=== PATIENT | female | born 1980 | race Caucasian/White ===

== ENCOUNTER 2016-12-19 12:48 | Inpatient (IN) | payer OTHER ==
[~2016-12-19] VITALS: Ht 157.5 cm; Wt 97.7 kg
[~2016-12-19 12:48] MED LIST: ABILIFY20 M1 PO; ABILIFY5 M1 PO; AMB5 PO; AMBIEN10 MG; AMBIEN10 MG PO; ATIVAN1 MG PO; BACO TOP; CIPROFLOXACIN500 MG PO; CLONAZEPAM1 MG PO; COL100 PO; COLACE100 MG PO; CYMBALTA20 M1 PO; ESCITALOPRAM10 M1 PO; FLA500 PO; GLU500 PO; KEFLEX500 MG PO; KLOR-CON M2020 MEQ PO; LAC PO; LEXAPRO10 MG PO; LEXAPRO20 MG PO; LISINOPRIL10 MG PO; LORAZEPAM1 MG PO; MORPHINE SULFAT15 MG PO; MOTRIN800 MG PO; MSC15 PO; MSC30 PO; NEU300 PO; NITROFURANTOIN100 MG PO; NOR10T PO; PAX20 PO; PERCOCET1 TA1 PO; PERCOCET1 TA2 PO; PERCOCET1 TA3 PO; PERCOCET1 TA5 PO; PRE625 PO; PREMARIN0.625 MG; PRILOSEC20 MG PO; REM15 PO; SERTRALINE HYDR50 M1 PO; VITC PO; ZES10 PO; ZINC-220220 MG PO; ZOLOFT25 MG PO; ZOLOFT50 MG PO
[2016-12-19 15:24] LABS: BASOPHIL % 0.5 % (0-2); PLATELET COUNT 241 x10^3mcL (130-400); RED CELL DISTRIBUTION WIDTH 12.8 % (11.5-14.5)
[2016-12-19 15:33] LABS: CALCIUM 9.6 mg/dL (8.5-10.1); CARBON DIOXIDE 28.4 mmol/L (21-32); CHLORIDE SERUM 103 mmol/L (98-107); CREATININE SERUM 0.8 mg/dL (0.6-1.0); GFR1 > 60 mL/min; GLUCOSE SERUM 112 mg/dL (74-106); POTASSIUM SERUM 3.1 mmol/L (3.5-5.1); SODIUM SERUM 144 mmol/L (136-145)
[2016-12-19 15:38] LABS: ALBUMIN 4.1 g/dL (3.4-5.0); ALKALINE PHOSPHATASE 126 U/L (46-116); ALT/SGPT 45 U/L (14-59); AMYLASE 56 U/L (25-115); AST/SGOT 24 U/L (15-37); BILIRUBIN TOTAL 0.6 mg/dL (0.20-1.00); LIPASE 121 IU/L (73-393); TOTAL PROTEIN, SERUM 7.8 g/dL (6.4-8.2)
[2016-12-19 15:38] LABS: AMPHETAMINE QUAL UR NONE DETECTED (NEG <=1000)
[2016-12-19] MEDS ORDERED: ABILIFY5 M1 (16:16)
[2016-12-19] MEDS ORDERED: ABILIFY5 M1 PO (16:16)
[2016-12-19] MEDS ORDERED: TYLENOL WITH CO1 TA2 PO (16:17)
[2016-12-19] MEDS ORDERED: GABAPENTIN800 M1 PO (16:17)
[2016-12-19] MEDS ORDERED: ZOLOFT50 MG PO (16:17)
[2016-12-19] MEDS ORDERED: NORCO1 TA2 PO (16:18)
[2016-12-19 18:08] VITALS: BP 125/69
[2016-12-19 18:10] LABS: MAGNESIUM 1.8 mg/dL (1.8-2.4); PHOSPHOROUS 1.8 mg/dL (2.5-4.9)
[2016-12-19 18:20] LABS: T3 TOTAL 1.3 ng/mL
[2016-12-19 18:22] LABS: FREE THYROXINE INDEX 3.8 ug/dL (1.4-4.5); T4(THYROXINE) 10.4 ug/dL (4.7-13.3)
[2016-12-19 19:00] LABS: FREE T4 1.37 ng/dL (0.76-1.46)
[2016-12-19 21:49] VITALS: BP 106/53
[2016-12-20 06:07] VITALS: BP 115/67
[2016-12-20 06:24] LABS: CALCIUM 8.3 mg/dL (8.5-10.1); CARBON DIOXIDE 27.9 mmol/L (21-32); CHLORIDE SERUM 107 mmol/L (98-107); CREATININE SERUM 0.6 mg/dL (0.6-1.0); GFR1 > 60 mL/min; GLUCOSE SERUM 93 mg/dL (74-106); POTASSIUM SERUM 3.7 mmol/L (3.5-5.1); SODIUM SERUM 144 mmol/L (136-145)
[2016-12-20 06:37] LABS: BASOPHIL % 0.8 % (0-2); PLATELET COUNT 203 x10^3mcL (130-400)
[2016-12-20 08:45] VITALS: BP 115/67
[2016-12-20 10:22] VITALS: BP 121/80
[2016-12-20 14:35] VITALS: BP 101/46
[2016-12-20 17:08] VITALS: BP 113/58
[2016-12-20 21:27] VITALS: BP 113/69
[2016-12-21 05:56] VITALS: BP 136/86
[2016-12-21 06:53] LABS: CALCIUM 8.6 mg/dL (8.5-10.1); CARBON DIOXIDE 28.2 mmol/L (21-32); CHLORIDE SERUM 110 mmol/L (98-107); CREATININE SERUM 0.5 mg/dL (0.6-1.0); GFR1 > 60 mL/min; GLUCOSE SERUM 98 mg/dL (74-106); MAGNESIUM 1.9 mg/dL (1.8-2.4); PHOSPHOROUS 3.5 mg/dL (2.5-4.9); SODIUM SERUM 146 mmol/L (136-145)
[2016-12-21 06:58] LABS: BASOPHIL % 0.9 % (0-2); PLATELET COUNT 179 x10^3mcL (130-400); RED CELL DISTRIBUTION WIDTH 13.1 % (11.5-14.5)
[2016-12-21 10:02] VITALS: BP 115/68
[2016-12-21 13:32] VITALS: BP 146/95
[2016-12-21 15:28] VITALS: BP 146/95
== END 2016-12-21 16:14 | disposition home or self-care (01) | DRG 249 ==
LOC: ED 12:48 → DU 16:30
PROVIDERS: Emergency Medicine; ADMIT Family Medicine
DX: K52.9 Noninfective gastroenteritis and colitis, unspecified (principal); D68.69 Other thrombophilia; E11.40 Type 2 diabetes mellitus with diabetic neuropathy, unspecified; Z68.41 Body mass index [BMI] 40.0-44.9, adult; E66.01 Morbid (severe) obesity due to excess calories; F41.9 Anxiety disorder, unspecified; Z79.84 Long term (current) use of oral hypoglycemic drugs; F17.210 Nicotine dependence, cigarettes, uncomplicated; F12.10 Cannabis abuse, uncomplicated; G44.219 Episodic tension-type headache, not intractable; Z90.49 Acquired absence of other specified parts of digestive tract; Z87.890 Personal history of sex reassignment; Z82.49 Family history of ischemic heart disease and other diseases of the circulatory system; Z80.3 Family history of malignant neoplasm of breast; Z83.3 Family history of diabetes mellitus
CPT/HCPCS: 83880; 84439; J1170; J1885; J2060; J2405; J3480; J7030; J7613; Q0092; Q9967

== ENCOUNTER 2017-01-22 21:20 | Inpatient (IN) | payer OTHER ==
[~2017-01-22] VITALS: Ht 157.5 cm; Wt 94.3 kg
[~2017-01-22 21:20] MED LIST changes: +ABILIFY5 M1; +GABAPENTIN800 M1 PO; +NORCO1 TA2 PO; +TYLENOL WITH CO1 TA2 PO
--- NOTE | 2017-01-22 21:37 | NUR ---
PT BROUGHT IN FROM ER LOBBY AND TRIAGED AT BEDSIDE. PENDING MD REMY.
--- NOTE | 2017-01-22 21:41 | NUR ---
PT TO ED FOR C/O PERIUMBILLICAL SHARP CONSTANT NON RADIATING PAIN WITH N/V AND SLIGHT CONSTIPATION SINCE MONDAY, PER PT, PT WAS TOLD TO COME TO ED BY DR GREGORY TO BE ADMITTIED TO [facility] FOR SURGERY TO FIX HER HERNIA. PT IS TENDER DURING PALPATION, BOWEL SOOUNDS PRESENT IN ALL QUADRANTS, PT STATES "I CANT REMEMBER HOW MUCH MIKA THROWN UP TODAY." PT AAOX4, RESP SLIGHTLY LABORED DUE TO PAIN OF 10/10, PT HAS EXTENSIVE HX OF ABDOMINAL SURGERIES. PT AWAITING MSE.
--- NOTE | 2017-01-22 21:50 | NUR ---
DR BECERRA AT BEDSIDE FOR MSE
[2017-01-22 22:15] LABS: BASOPHIL % 0.7 % (0-2); PLATELET COUNT 284 x10^3mcL (130-400); RED CELL DISTRIBUTION WIDTH 13.2 % (11.5-14.5)
--- NOTE | 2017-01-22 22:22 | NUR ---
ATTEMTPED 3 TIMES TO ESTABLISH IV ACCESS AND WAS UNABLE TO, JOSELINE PULLIAM AT BEDSIDE TO ATTEMPT NOW.
[2017-01-22 22:23] LABS: ALBUMIN 4.2 g/dL (3.4-5.0); ALKALINE PHOSPHATASE 118 U/L (46-116); ALT/SGPT 36 U/L (14-59); AMYLASE 43 U/L (25-115); AST/SGOT 34 U/L (15-37); BILIRUBIN TOTAL 0.5 mg/dL (0.20-1.00); CALCIUM 9.2 mg/dL (8.5-10.1); CARBON DIOXIDE 27.1 mmol/L (21-32); CHLORIDE SERUM 103 mmol/L (98-107); CREATININE SERUM 0.7 mg/dL (0.6-1.0); GFR1 > 60 mL/min; GLUCOSE SERUM 146 mg/dL (74-106); LIPASE 118 IU/L (73-393); SODIUM SERUM 143 mmol/L (136-145)
[2017-01-22] MEDS ORDERED: CYMBALTA20 M1 PO (22:26)
[2017-01-22] MEDS ORDERED: FIORICET1 CAP PO (22:26)
[2017-01-22 22:33] LABS: POTASSIUM SERUM 2.7 mmol/L (3.5-5.1)
--- NOTE | 2017-01-22 22:45 | NUR ---
[facility]
--- NOTE | 2017-01-22 23:41 | NUR ---
PT MEDICATED PER MD ORDERS FOR PAIN. SO AT BEDSIDE, PT IN NAD NOTED AT THIS TIME
--- NOTE | 2017-01-22 23:42 | NUR ---
PTS LAST MEAL WAS 0500 THIS AM, LAST DRINK WAS 1700 TONIGHT.
[2017-01-23] VITALS (7 sets, daily range): BP systolic 107–170; BP diastolic 54–99
--- NOTE | 2017-01-23 00:29 | NUR ---
DR BECERRA MADE AWARE THAT PT REFUSED GI COCKTAIL
--- NOTE | 2017-01-23 00:43 | NUR ---
PAGED DR MERRITT ABOUT PATIENT'S COMPLAINTS OF PAIN. PER MD, SHE WILL TALK TO THE PATIENT DURING ASSESSMENT.
--- NOTE | 2017-01-23 00:56 | NUR ---
REPORT CALLED TO MAGDIEL TO ASSUME CARE OF PT ON TELE FLOOR
[2017-01-23 01:14] LABS: T3 TOTAL 1.88 ng/mL
[2017-01-23 01:16] LABS: FREE T4 1.41 ng/dL (0.76-1.46); FREE THYROXINE INDEX 4.1 ug/dL (1.4-4.5); T4(THYROXINE) 10.7 ug/dL (4.7-13.3)
[2017-01-23 01:21] LABS: CHOLESTEROL/HDL RATIO 4.2; MAGNESIUM 1.8 mg/dL (1.8-2.4); PHOSPHOROUS 3.9 mg/dL (2.5-4.9)
--- NOTE | 2017-01-23 01:22 | NUR ---
RECEIVED PATIENT FROM ED VIA [facility], PATIENT ALERT AND ORIENTED FRIEND AT BEDSIDE, TELE # 25 SR, IV ACCESS TO REJ WNL INFUSING NS AND POTASSIUM RIDER, C/O PAIN TO ABD, WILL MEDICATE ORDERED, ORIENTED PATIENT TO ROOM AND SURROUNDINGS, BED IN LOW POSITION, BED RAILS UP X 2, CALL LIGHT WITHIN REACH, WILL ENDORSE CARE TO PRIMARY NURSE MAGDIEL TREVIZO
--- NOTE | 2017-01-23 01:25 | NUR ---
RECEIVED PT FROM HUNTER TREVIZO. PT IS ALERT/ORIENTED X4. PT CRYING; STATING ABD PAIN IS A 10/10. PT STATES PAIN IS CONSTANT AND IS A "SHARP/ACHING" TYPE PAIN. ABD IS TENDER TO TOUCH. PER ER NURSE WISAM; THE 2ND K RIDER IS INFUSING FROM THE ER. DR MERRITT ALSO IN ROOM SPEAKING TO PT. WILL CONTINUE TO MONITOR.
--- NOTE | 2017-01-23 02:00 | NUR ---
SCD'S APPLIED TO BLE
[2017-01-23 03:22] LABS: AMPHETAMINE QUAL UR NONE DETECTED (NEG <=1000)
--- NOTE | 2017-01-23 03:37 | NUR ---
PT AWAKE. NO C/O PAIN. WILL CONTINUE TO MONITOR.
[2017-01-23 03:54] LABS: UA SPECIFIC GRAVITY 1.025 (1.005-1.035); microscopic required? YES; urine erythrocyte 1+ (NEGATIVE)
--- NOTE | 2017-01-23 05:03 | NUR ---
PT CRYING, C/O ABD PAIN. PT RATES THE PAIN A 10/10 ON THE PAIN SCALE. T/C TO DR MERRITT WHO STATED HE WILL GO SPEAK TO THE PT.
[2017-01-23 06:36] LABS: CALCIUM 8.8 mg/dL (8.5-10.1); CARBON DIOXIDE 27.1 mmol/L (21-32); CHLORIDE SERUM 107 mmol/L (98-107); CREATININE SERUM 0.6 mg/dL (0.6-1.0); GFR1 > 60 mL/min; GLUCOSE SERUM 117 mg/dL (74-106); POTASSIUM SERUM 3.5 mmol/L (3.5-5.1); SODIUM SERUM 144 mmol/L (136-145)
--- NOTE | 2017-01-23 07:19 | NUR ---
ALL PT CARE ENDORSED TO SUBHA TREVIZO
--- NOTE | 2017-01-23 07:36 | NUR ---
A+OX4, COMPLAINING OF SEVERE ABD PAIN, DENIES NAUSEA AND SOB, NO RESPIRATORY DISTRESS NOTED, TELE 25, NSR, PULSES MODERATE AND EQUAL CAITLIN, NO EDEMA PRESENT, SCDS PRESENT, LUNG SOUNDS CLEAR, BOWEL SOUNDS ACTIVE, VOIDING, GENERALIZED WEAKNESS, AMBULATORY, SKIN INTACT, IV IN REJ WITH NS @ 135 ML/HR, SITE WNL.
--- NOTE | 2017-01-23 07:58 | NUR ---
PT COMPLAINING OF SEVERE ABD PAIN, DILAUDID GIVEN.
--- NOTE | 2017-01-23 08:35 | NUR ---
PT RESTING IN BED, NO RESPIRATORY DISTRESS NOTED, STATES PAIN HAS DECREASED.
--- NOTE | 2017-01-23 09:34 | NUR ---
PT RESTING IN BED, NO RESPIRATORY DISTRESS NOTED, STATES PAIN IS TOLERABLE AT THIS TIME.
--- NOTE | 2017-01-23 11:01 | NUR ---
PT RESTING IN BED, NO RESPIRATORY DISTRESS NOTED, COMPLAINING OF SEVERE ABD PAIN, DILAUDID GIVEN.
--- NOTE | 2017-01-23 13:58 | NUR ---
DR DISLA SWITCHED PT FROM DILAUDID IV TO TORADOL IV, PT STATED TORADOL WAS GIVEN TO HER IN ER AND DID NOT HELP HER PAIN AT ALL. DR DISLA NOTIFIED.
--- NOTE | 2017-01-23 14:57 | NUR ---
Initial Nutrition Assessment Dx: Abdominal pain PMHx: Sleep disorder,Anxiety disorder,Neuropathy,Chronic abdominal pain and tension headaches PSHx: Cholecystectomy, Hernia Repair (Umbilical), Hysterectomy with oopherectomy, tonsillectomy, incision and drainage for abscess x6. Labs: (01/23) BH, (01/22) TH, LDL:109H, A1c: 6.2H Meds: Colace, KCL, Miralax, Senokot, Zofran, Diet: Clear liquid PO Intake: (01/22) B:NPO L: 50%, D:100% (01/23)L:100% Ht:62in, 5'2" Wt: 207.5#, 94.34kg BMI:38kg/m2 (obesity classII) IBW:110#, 50kg %IBW: 189% UBW:197# x 1 month ago per pt. Weight hx: (May 2015) 208#, (Mar 2015) 212# Age: 36 y/o female Food Allergies:NKFA Skin:intact Yasir:21 Edema:None GI: pt c/o severe abd pain Last BM: 01/20 Nursing Trigger: N/V/D>days, admitted with potetntial tegan dx and poor PO intake> 3 days. Pt admitted with constant sharp 10/10 preumbilical non-radiating pain with intractable vomiting and diarrhea per H&P. Per progress note 01/23, CT in ER demonstrated small fat containing umbilical hernia without inflammation. Pt claims 4 episodes of vomiting overnight. Dr Cole, Dr Davenport and Dr. Fernandez consulted. Per bed huddle this morning, pt will have colonoscopy tomorrow. During visit observed pt laying in bed with family at bedside. During RD interview pt reports fair appetite and was c/o of stomach pain after eating. Pt states she will have a colonoscopy tomorrow and possible surgery for scar tissue removal in her stomach. Problem with: N: Yes V: Emesis x2 today D: No C:Yes, with no BM x 3 days. Problems with: Chewing:No Swallowing: No Current appetite: Fair Recent wt change:+10.5# x 1 month %wt change:-5.3% Vitamin/Supplement use:No Special diet at home:No, pt follows a regular diet. Physical activity:No Education: Pt declined diet education due to pain and stated she received diet education from prior admission. Estimated Nutritional Needs Based on adjusted body weight 61 kg Energy: 1525-1830kcal/d (25-30kcal/kg for adult maintenance) Protein: 49-61 g/d (0.8-1.0g/kg for adult maintenance) Fluid: 1525-1830ml/d (1 ml/kcal) or per doctor Nutrition Diagnosis 1. Altered GI function related to umbilical hernia as evidenced by pt c/o abd pain and emesis x2 today. 2. Obesity related to overconsumption of kcals and sedentary lifestyle as evidenced by BMI: 38kg/m2 and 189% of IBW. 3. Altered nutrition labs related to endocrine dysfunction as evidenced by A1c: 6.2 Intervention 1.Recommend advance diet as tolerated to CCHO. Monitor/Evaluate Goal: PO intake of at least 75% est needs and no emesis/abd pain Monitor: PO intake, Labs (BG) GI function F/U in 3-5 days as moderate risk:01/26-
--- NOTE | 2017-01-23 14:59 | NUR ---
Recommend advance diet as tolerated to CCHO.
--- NOTE | 2017-01-23 15:19 | NUR ---
PT RESTING IN BED, NO RESPIRATORY DISTRESS NOTED, COMPLAINING OF SEVERE ABD PAIN, DILAUDID 0.5 MG IV GIVEN.
--- NOTE | 2017-01-23 15:34 | NUR ---
MULTICUT LINE OPERATOR IN TO SPEAK TO PT ABOUT DRUG DEPENDENCY.
--- NOTE | 2017-01-23 16:05 | NUR ---
PT RESTING IN BED, NO RESPIRATORY DISTRESS NOTED, STATES PAIN HAS DECREASED SINCE DILAUDID.
--- NOTE | 2017-01-23 17:18 | NUR ---
FIRST BOTTLE OF BOWEL PREP STARTED, PT GIVEN INSTRUCTIONS, VERBALIZED UNDERSTANDING. BEDSIDE COMMODE PLACED IN ROOM. NO RESPIRATORY DISTRESS NOTED. STATES CAN WAIT FOR NEXT PRN PAIN MED.
--- NOTE | 2017-01-23 18:10 | NUR ---
PT RESTING IN BED, NO RESPIRATORY DISTRESS NOTED, COMPLAINING OF SEVERE ABD PAIN.
--- NOTE | 2017-01-23 18:28 | NUR ---
PT COMPLAINING OF SEVERE ABD PAIN, DILAUDID GIVEN.
--- NOTE | 2017-01-23 19:17 | NUR ---
SECOND BOWEL PREP STARTED BY AM RN-AYANA. PATIENT VERBALIZED UNDERSTANDING AND IS AWARE OF NEED FOR BOWEL PREP. WILL CONTINUE TO MONITOR. CALL LIGHT WITHIN REACH.
--- NOTE | 2017-01-24 00:33 | NUR ---
PAIN MEDICATION ADMINISTERED. SEE EMAR FOR PAIN. PATIENT INFORMED TO CALL WHEN SHE HAS A BM TO ENSURE THAT BOWEL IS CLEAR. PATIENT VERBALIZED UNDERSTANDING. REFUSED AMBIEN AT THIS TIME DUE TO ONGOING NEED TO USE BATHROOM FOR SCHEDULED PROCEDURE IN THE [facility].
[2017-01-24 05:26] VITALS: BP 149/83
--- NOTE | 2017-01-24 07:35 | NUR ---
NPO SINCE 3AM, AMBULATED STEADY TO BATHROOM, WATERY STOOL WITH PARTICLES NOTED, PREVIOUS RN HAS CALLED REPORT AND GI STAFF AWARE. NO NEW ORDER FOR ENEMA. HEP LOCKED FOR PROCEDURE, IVF IS NS WITH 40 MEQ KCL AT 60ML/HR TO REJ DRESSING CDI. PATIENT ORIENTED X4, DENIES CHEST PAIN, NO EDEMA, ROOM AIR, NO SOB NOTED, LUNG SOUNDS CLEAR, DENIES PAIN WITH URINATION, SKIN INTACT, DENIES PAIN, NAUSEA AND DIZZINESS AT THIS TIME, SCD OFF DUE TO FREQUENT AMBULATING TO BATHROOM, CONTACT ISOLATION DUE TO HX OF ESBL AND R/O CDIFF. CALL LIGHT WITHIN REACH.
--- NOTE | 2017-01-24 08:11 | NUR ---
OFF FLOOR VIA [facility] FOR GI LAB
--- NOTE | 2017-01-24 09:25 | NUR ---
PATIENT RETURNED FROM PROCEDURE, VITALS SIGNS TAKEN, PATIENT HOOKED BACK UP TO IV, PATIENT IS IN NO APPARENT DISTRESS AND IS RESTING.
--- NOTE | 2017-01-24 11:39 | NUR ---
PATIENT ASLEEP, RESP EVEN AND UNLABORED
[2017-01-24 13:17] VITALS: BP 140/77
--- NOTE | 2017-01-24 14:43 | NUR ---
UPON ASSESSMENT, PATIENT STATED PAIN AT IV SITE, IV SITE INSPECTED/ FLUSHED. NO PAIN WHILE FLUSHING, NO SWELLING, OR REDNESS. PATIENT STATED LAYING ON IV SITE DURING NAP. EDUCATED PATIENT ABOUT NOT SLEEPING ON IV SITE, WILL ADDRESS PAIN REPORTED OF 8/10 IN ABDOMIN, PAGED DR. SIMON
--- NOTE | 2017-01-24 14:47 | NUR ---
SPOKE WITH DR BLAIR, MADE AWARE PATIENT REQUESTING IV PAIN MEDICATION FOR 8/10 ABDOMINAL PAIN.
[2017-01-24 14:59] LABS: CALCIUM 8.8 mg/dL (8.5-10.1); CARBON DIOXIDE 30.8 mmol/L (21-32); CHLORIDE SERUM 106 mmol/L (98-107); CREATININE SERUM 0.5 mg/dL (0.6-1.0); GFR1 > 60 mL/min; GLUCOSE SERUM 111 mg/dL (74-106); POTASSIUM SERUM 3.5 mmol/L (3.5-5.1); SODIUM SERUM 144 mmol/L (136-145)
--- NOTE | 2017-01-24 15:54 | NUR ---
PATIENT REPORTED NEW ONSET HEADACHE, VITALS OBTAINED, WNL, PATIENT REQUESTED ICE PACK, ONE PACK APPLIED, PATIENT EDUCATION GIVEN ON LAYING ON IV SITE AND ALSO ON ICE PACK USAGE.
[2017-01-24 16:28] VITALS: BP 138/69
--- NOTE | 2017-01-24 16:59 | NUR ---
PATIENT STATES PAIN OF 8.5 IN ABDOMIN, HEADACHE RESOLVED WITH ICE PACK, WILL FOLLOW UP WITH MD. CHEST RISE EVEN, CALL LIGHT WITHIN REACH.
--- NOTE | 2017-01-24 17:37 | NUR ---
PAGED AND SPOKE WITH DR BLAIR, MADE AWARE PATIENT REPORTS NORCO NOT WORKING, PAIN HAS INCREASED TO 8.5/10 IN ABDOMEN.
--- NOTE | 2017-01-24 18:10 | NUR ---
MEDICATED WITH NORCO FOR 8.5/10 PAIN. ASSISTED WITH DINNER SET UP.
--- NOTE | 2017-01-24 18:35 | NUR ---
IVF DECREASED TO TKO.
--- NOTE | 2017-01-24 19:30 | NUR ---
REC'D PT FROM DAY NURSE. CONTACT PREC IN PLACE. LAYING IN BED. AAOX4, SPEECH CLEAR, FOLLOWS COMMANDS. NO SIGNS OF DISTRESS NOTED. BREATHING EVEN/UNLABORED ON RA. MED SURG PT. NO TELE. DENIES CP, DIZZINESS, OR PALPITATIONS. REPORTS CONSTANT THROBBING WILLIS 10/15. DENIED TYLENOL. REQUESTING FIORICET. TRACE EDEMA BLE. PT IS S/O COLONOSCOPY. REPORTS ABD PAIN 12/15 WITH TENDERNESS TO RLQ/LUQ. NORCO NOT DUE UNTIL 2200. PASSING GAS BUT NO BM POST PROCEDURE. DENIES N/V. TOLERATING DIET. VOIDING FREELY. AMBULATORY. SKIN INTACT. IV TO RIJ PATENT AND INFUSING WELL, SITE WNL. CALL LIGHT WITHIN REACH, BED AT LOWEST POSITION. WILL CONTINUE TO MONITOR.
--- NOTE | 2017-01-24 20:00 | NUR ---
DR. COLEMAN MADE AWARE OF JAKI REQUEST VIA [facility].
[2017-01-24 21:00] VITALS: BP 128/69
--- NOTE | 2017-01-24 22:00 | NUR ---
PT C/O ABD PAIN 12/15. NORCO GIVEN PER ORDER. STILL HAS MILD WILLIS. ICE PACK GIVEN. WILL CONTINUE TO MONITOR.
--- NOTE | 2017-01-25 00:21 | NUR ---
PT AWAKE. RESTING IN BED TRYING TO SLEEP. NO SIGNS OF DISTRESS NOTED. BREATHING EVEN/UNLABORED ON RA. CALL LIGHT WITHIN REACH, BED AT LOWEST POSITION. WILL CONTINUE TO MONITOR.
--- NOTE | 2017-01-25 01:58 | NUR ---
PT RESTING IN BED WITH EYES CLOSED. NO SIGNS OF DISTRESS NOTED. BREATHING EVEN/UNLABORED ON RA. CALL LIGHT WITHIN REACH, BED AT LOWEST POSITION. WILL CONTINUE TO MONITOR.
--- NOTE | 2017-01-25 02:35 | NUR ---
PT C/O ABD PAIN 12/15. NORCO GIVEN PER ORDER. PT STILL HAS MOD WILLIS. ICE PACK GIVEN PER ORDER. PT STATED SHE WAS ABLE TO SLEEP FOR A WHILE. WILL CONTINUE TO MONITOR.
[2017-01-25 05:24] VITALS: BP 151/82
--- NOTE | 2017-01-25 05:33 | NUR ---
PT RESTING IN BED WATCHING TV. C/O EPIGASTRIC AND RLQ PAIN 10/15. NO PAIN MEDS DUE AT THIS TIME. WILL GIVE WHEN DUE. DENIES N/V. BOWEL SOUNDS ACTIVE. REPORTED HAVING BMX1, SMALL/LOOSE. HAS MILD WILLIS BUT REPORTS ICE PACK IS HELPING. BS 103, NO COVERAGE. CALL LIGHT WITHIN REACH, BED AT LOWEST POSITION. WILL ENDORSE TO DAY NURSE.
--- NOTE | 2017-01-25 06:31 | NUR ---
NORCO GIVEN FOR ABD PAIN 12/15.
--- NOTE | 2017-01-25 08:00 | NUR ---
RECEIVED PATIENT A/A/OX4; NO RESP DISTRESS ON RA. DENIED CHEST PAIN NOW. ABD OBESE/SOFT. NO C/O ABD PAIN NOW. TOLERATED CARDAIC DIET BREAKFAST WELL. NO N/V. AMBULATORY. IVHL'D TO [facility]. CALL LIGHT IN REACH.
--- NOTE | 2017-01-25 08:30 | NUR ---
DR. GIBSON AND MEDICAL TEAM MADE MORNING ROUND. PLAN OF CARE DISCUSSED WITH PATIENT, INCLUDED WITH POSSIBLE DISCHARGE TODAY AND FOLLOW UP WITH PCP. PATIENT AGREED WITH PLAN OF CARE.
[2017-01-25 10:45] VITALS: BP 125/71
[2017-01-25 16:15] VITALS: BP 125/71
[2017-01-25] MEDS ORDERED: BENTYL20 MG PO (16:16)
[2017-01-25] MEDS ORDERED: NOR10T PO (16:18)
[2017-01-25] MEDS ORDERED: FIORICET1 CAP PO (16:19)
[2017-01-25] MEDS ORDERED: CYMBALTA60 M1 PO (16:23)
[2017-01-25] MEDS ORDERED: LIPI10 PO (16:26)
[2017-01-25] MEDS ORDERED: GLU500 PO (16:28)
[2017-01-25] MEDS ORDERED: COL100 PO (16:29)
[2017-01-25] MEDS ORDERED: METP PO (16:31)
[2017-01-25] MEDS ORDERED: LORAZEPAM1 MG PO (16:32)
[2017-01-25] MEDS ORDERED: AMBIEN10 MG PO (16:35)
--- NOTE | 2017-01-25 17:40 | NUR ---
STILL C/O ABD PAIN EVERY 4 HRS. ASKED NORCO 10/325 Q4H. GOOD PAIN RELIEF BY NORCO. D/C TO HOME PER ORDER. INSTRUCTION GIVEN. IV D/C'D. OVER NEEDLE CATHETER INTACT. CONDITION STABLE.
== END 2017-01-25 17:43 | disposition home or self-care (01) | DRG 254 ==
LOC: ED 21:20 → MU 01-23 00:14 → DU 01-23 00:14 → MU 01-24 07:40
PROVIDERS: Emergency Medicine; Internal Medicine Gastroenterology; ADMIT Family Medicine
PROC: 0DJD8ZZ Inspection of Lower Intestinal Tract, Via Natural or Artificial Opening Endoscopic (ICD-10-PCS; principal; 2017-01-24 08:00)
DX: K42.9 Umbilical hernia without obstruction or gangrene (principal); N17.0 Acute kidney failure with tubular necrosis; D68.69 Other thrombophilia; E11.9 Type 2 diabetes mellitus without complications; E87.6 Hypokalemia; F41.9 Anxiety disorder, unspecified; E66.9 Obesity, unspecified; E78.5 Hyperlipidemia, unspecified; G44.209 Tension-type headache, unspecified, not intractable; F12.10 Cannabis abuse, uncomplicated; F17.210 Nicotine dependence, cigarettes, uncomplicated; Z68.38 Body mass index [BMI] 38.0-38.9, adult; Z79.818 Long term (current) use of other agents affecting estrogen receptors and estrogen levels; Z90.710 Acquired absence of both cervix and uterus; R31.9 Hematuria, unspecified
CPT/HCPCS: 45378; 83880; 84439; C9113; J1170; J1200; J1610; J2250; J2270; J2310; J2405; J2765; J3010; J3480; J3490; J7030; J7040; Q0092